=== PATIENT | male | born 1945 | race Caucasian/White ===

== ENCOUNTER 2019-04-02 21:21 | Emergency (ER) | payer MEDICARE, OTHER ==
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
[2019-04-02 23:02] VITALS: BP 148/79
== END 2019-04-02 23:00 | disposition home or self-care (01) ==
LOC: ED 21:21
DX: S61.411A Laceration without foreign body of right hand, initial encounter (principal); W26.0XXA Contact with knife, initial encounter; Y92.89 Other specified places as the place of occurrence of the external cause
CPT/HCPCS: 12001; 99282